=== PATIENT | female | born 1935 | race Two or more races ===

== ENCOUNTER 2020-03-06 11:10 | Inpatient (IN) | payer OTHER ==
[~2020-03-06] VITALS: Ht 162.6 cm; Wt 97.5 kg
[2020-03-06] VITALS (12 sets, daily range): BP systolic 100–158; BP diastolic 60–78
[2020-03-06 11:45] LABS: ABG BASE EXCESS 2.5 mmol/L; ABG OXYGEN SATURATION 95.9 % (92.0-98.5); ABG PCO2 66.9 mmHg (35.0-45.0); ABG PH 7.279 (7.350-7.450); ABG PO2 90.5 mmHg (75.0-100.0); AaDO2 409.7 mmHg; COHb 0.4 % (0.5-1.5); MetHb 0.1 % (0.0-1.5); O2Hb 95.4 % (94.0-97.0); SITE, ABG Right Radial; VENT MODE, BG NRB
--- NOTE | 2020-03-06 11:50 | NUR ---
BIB FAMILY FOR SOB X2 DAYS. COVID + A MONTH AGO. PATIENT A/OX4, BREATHING RAPID AND LABORED. SHORT OF BREATH. GRANDDAUGHTER AT BEDSIDE FOR TRANSLATION. ATTACHED TO THE MICROBIOLOGY DIRECTOR. SPO2 OF 39% ON ROOM AIR. DR. MELVIN AND RT AT BEDSIDE FOR EVALUATION.
[2020-03-06 12:06] LABS: BASOPHILS # (AUTO) 0.1 /CMM (0.0-0.2); BASOPHILS % (AUTO) 0.7 % (0.0-2.0); EOSINOPHILS % (AUTO) 2.4 % (0.0-6.0); HEMATOCRIT 35 % (33-45); HEMOGLOBIN 10.8 g/dL (11.5-14.8); LYMPHOCYTES # (AUTO) 1.6 /CMM (0.8-4.8); LYMPHOCYTES % (AUTO) 20.8 % (20.0-44.0); MEAN CORPUSCULAR HGB CONC 31 g/dl (31.0-36.0); MEAN CORPUSCULAR VOLUME 84 fL (82-100); MONOCYTES # (AUTO) 0.4 /CMM (0.1-1.30); MONOCYTES % (AUTO) 4.6 % (2.0-12.0); NEUTROPHILS # (AUTO) 5.6 /CMM (1.8-8.9); NEUTROPHILS % (AUTO) 71.5 % (43.0-81.0); PLATELET COUNT (AUTO) 282 /CMM (150-450); RED BLOOD CELL COUNT(AUTO) 4.17 MIL/uL (4.0-5.2); WHITE BLOOD COUNT (AUTO) 7.8 K/uL (4.3-11.0)
--- NOTE | 2020-03-06 12:14 | NUR ---
PATIENT ON BIPAP, TOLERATING CURRENT SETTINGS.
[2020-03-06] MEDS ORDERED: GLIM2TAB31 PO (12:19)
[2020-03-06] MEDS ORDERED: PANT40TA49 PO (12:19)
[2020-03-06] MEDS ORDERED: CALC-16 PO (12:19)
[2020-03-06] MEDS ORDERED: LOSA100T31 PO (12:19)
[2020-03-06] MEDS ORDERED: POTA10TA PO (12:19)
[2020-03-06] MEDS ORDERED: FURO40TA5 PO (12:19)
[2020-03-06] MEDS ORDERED: CLON0.1T PO (12:19)
[2020-03-06] MEDS ORDERED: GABA-532 PO (12:19)
[2020-03-06] MEDS ORDERED: LEVO75TA7 PO (12:19)
[2020-03-06] MEDS ORDERED: ALOG12.52 PO (12:19)
[2020-03-06] MEDS ORDERED: SIMV-46 PO (12:19)
[2020-03-06] MEDS ORDERED: APIX5TAB PO (12:19)
[2020-03-06] MEDS ORDERED: DILT300C57 PO (12:19)
[2020-03-06 12:21] LABS: CALCIUM, SERUM 8.3 mg/dL (8.5-10.1); CARBON DIOXIDE 30 mmol/L (21-32); CHLORIDE 106 mmol/L (98-107); CREATININE 1.2 mg/dL (0.6-1.3); GLUCOSE 223 mg/dL (74-106); POTASSIUM 4.1 mmol/L (3.5-5.1); SODIUM SERUM 144 mmol/L (136-145); UREA NITROGEN, BLOOD 20 mg/dL (7-18)
[2020-03-06 12:36] LABS: B-TYPE NATRIURETIC PEPTIDE 4672 PG/ML (0-125)
[2020-03-06] MEDS ORDERED: CEFEPIME 1 GM in IV D5W 50 ML IV ONE (13:00)
[2020-03-06] MEDS ORDERED: VANCOMYCIN 1 GM in IV D5W 250 ML IV ONE (13:00)
--- NOTE | 2020-03-06 14:58 | NUR ---
ATTEMPTED TO WEAN OFF PATIENT FROM BIPAP BY RT, PATIENT UNABLE TO TOLERATE. PATIENT PLACED BACK ON BIPAP AND DR. MAN MADE AWARE.
--- NOTE | 2020-03-06 15:20 | NUR ---
room 256
[2020-03-06] MEDS ORDERED: ZOLPIDEM TARTRATE 5 MG TABLET PO PRN (15:30)
[2020-03-06] MEDS ORDERED: Z GUARD REMEDY 2 OZ OINT TP PRN (15:30)
[2020-03-06] MEDS ORDERED: HYDROCODONE/APAP 5/325MG TABLET PO PRN (15:30)
[2020-03-06] MEDS ORDERED: MAG HYDROX/AL HYDROX/SIMETH 30 ML UDC PO PRN (15:30)
[2020-03-06] MEDS ORDERED: MAGNESIUM HYDROXIDE 30 ML UDC PO PRN (15:30)
[2020-03-06] MEDS ORDERED: ONDANSETRON HCL/PF 4 MG/2 ML VIAL IVP PRN (15:30)
[2020-03-06] MEDS ORDERED: ACETAMINOPHEN 325 MG TABLET PO PRN (15:30)
[2020-03-06] MEDS ORDERED: DEXTROSE 50%-WATER 50 ML DISP.SYRIN IV PRN ×2 (15:30→18:30)
--- NOTE | 2020-03-06 16:09 | NUR ---
report given to Max ORELLANA
[2020-03-06 17:04] LABS: BILIRUBIN,DIRECT 0.1 mg/dL (0.0-0.2); BILIRUBIN,TOTAL 0.5 mg/dL (0.2-1.0)
[2020-03-06] MEDS ORDERED: BLOOD SUGAR DIAGNOSTIC 1 EACH STRIP IN SCH (17:30)
--- NOTE | 2020-03-06 17:30 | NUR ---
BOILERMAKER FITTER NOTES RECEIVED PATIENT AOX4 GREENLANDIC SPEAKING , ON 5LPM NC SPO2 OF 92-95% , DENIES SOB AT THIS TIME , RESPIRATIONS UNLABORED , AFIB 88 ON BEDSIDE MONITOR , SKIN IS INTACT UPON ASSESSMENT , IV OF L HAND AND R HAND # 20 PATENT AND INTACT SL , ADMISSION ORDERS CARRIED OUT , BELONGING LIST CHECKED , BED ALARM MADE AUDIBLE , ATTACHED TO MONITOR , ISOLATION PREC OBSERVED , WILL CONTINUE TO MONITOR .
--- NOTE | 2020-03-06 17:31 | NUR ---
patient a/ox4, breathing appears to be more stable. Transferred to room 256-1 via acls protocol. No dsitress noted, patient able to ambulate. Endorsed to Max FELDER.
--- NOTE | 2020-03-06 17:50 | NUR ---
XEROX MACHINE MECHANIC NOTES CALLED PHARMACY , FOLLOWED UP ZITHROMAX 500MG IV , AMARYL 2MG , ELIQUIS NOT LOADED IN PHYXIS , PER PHARMACY THEY WILL DELIVER IT .
--- NOTE | 2020-03-06 18:30 | NUR ---
AUTO SUSPENSION AND STEERING MECHANIC NOTES CALLED PHARMACY F/U ZITHROMAX IV , AMARY; 2MG , ELQUIS STILL NOT LOADED IN PHYSIS , PER PHARMACIST THEY WILL BRING IT
[2020-03-06] MEDS: CALCIUM CARB 250MG /VITAMIN D 1 UDTAB PO SCH (18:46)
--- NOTE | 2020-03-06 19:13 | NUR ---
ORACLE MANAGER NOTES BS 155 @ 1735 , SSI NOT GIVEN THERE IS NO ORDER FOR COVERAGE , CALLED DIETARY , NO ANSWER TO F/U PT DIET .
--- NOTE | 2020-03-06 19:14 | NUR ---
INTERIOR SPECIALIST NOTES PATIENT STABLE AT THIS TIME , AOX4 KAZAKH SPEAKING , ON 5LPM NC SPO2 OF 97% , DENIES SOB AT THIS TIME , RESPIRATIONS UNLABORED , AFIB 78 ON BEDSIDE MONITOR , IV OF L HAND AND R HAND # 20 PATENT AND INTACT SL ,REPORT GIVEN TO TRISTON FOR CONTINUITY OF CARE CALLED PHARMACY SPOKE WITH LOUIE F/U MEDMayra , DRIVEMATIC MACHINE OPERATOR WILL BRING
[2020-03-06] MEDS ORDERED: SIMVASTATIN 20 MG TABLET PO SCH (22:00)
[2020-03-06] MEDS: CLONIDINE HCL 0.1 MG TABLET PO SCH (22:00)
[2020-03-06] MEDS: BLOOD SUGAR DIAGNOSTIC 1 EACH STRIP IN SCH (22:33)
[2020-03-06] MEDS: SIMVASTATIN 20 MG TABLET PO SCH (22:36)
[2020-03-06] MEDS: APIXABAN 5 MG TABLET PO SCH (22:38)
[2020-03-06] MEDS: GLIMEPIRIDE 1 MG TABLET PO SCH (22:43)
[2020-03-06] MEDS ORDERED: AZITHROMYCIN 500 MG VIAL ONE (23:13)
[2020-03-06] MEDS: AZITHROMYCIN 500 MG in IV D5W 250 ML IV SCH (23:23)
[2020-03-07] VITALS (27 sets, daily range): BP systolic 87–138; BP diastolic 52–98
--- NOTE | 2020-03-07 00:01 | NUR ---
pt placed on bipap due to increased o2 needs Addendum: 03/07/20 at 0434 by RADHA TINAJERO RT Amended: Links added.
--- NOTE | 2020-03-07 01:30 | NUR ---
CORRESPONDENCE REPRESENTATIVE PT NOTED TO DESATURATED; PLACED ON BIPAP BY RT. Addendum: 03/08/20 at 0625 by HOA ROBERTS RN 03/08/20
--- NOTE | 2020-03-07 04:15 | NUR ---
fio2 increased due to decreased spo2 Addendum: 03/07/20 at 0439 by RADHA DAVIS Amended: Links added.
[2020-03-07 05:13] LABS: EOSINOPHILS % (AUTO) 5.9 % (0.0-6.0); HEMATOCRIT 30 % (33-45); HEMOGLOBIN 9.5 g/dL (11.5-14.8); LYMPHOCYTES # (AUTO) 1.3 /CMM (0.8-4.8); LYMPHOCYTES % (AUTO) 29.8 % (20.0-44.0); MEAN CORPUSCULAR HGB CONC 31 g/dl (31.0-36.0); MEAN CORPUSCULAR VOLUME 83 fL (82-100); MONOCYTES # (AUTO) 0.3 /CMM (0.1-1.30); MONOCYTES % (AUTO) 7.4 % (2.0-12.0); NEUTROPHILS # (AUTO) 2.4 /CMM (1.8-8.9); NEUTROPHILS % (AUTO) 55.9 % (43.0-81.0); PLATELET COUNT (AUTO) 288 /CMM (150-450); RED BLOOD CELL COUNT(AUTO) 3.68 MIL/uL (4.0-5.2); WHITE BLOOD COUNT (AUTO) 4.2 K/uL (4.3-11.0)
[2020-03-07 05:31] LABS: CALCIUM, SERUM 8.2 mg/dL (8.5-10.1); MAGNESIUM 2.2 mg/dL (1.8-2.4); PHOSPHORUS 2.9 mg/dL (2.5-4.9); POTASSIUM 3.5 mmol/L (3.5-5.1)
[2020-03-07] MEDS: BLOOD SUGAR DIAGNOSTIC 1 EACH STRIP IN SCH ×4 (07:51→22:50)
[2020-03-07] MEDS: PANTOPRAZOLE 40 MG TABLET.DR PO SCH (07:52)
[2020-03-07] MEDS: LEVOTHYROXINE SODIUM 75 MCG TABLET PO SCH (07:52)
--- NOTE | 2020-03-07 08:00 | NUR ---
ICU/RN INITIAL NOTES,AM RECEIVED REPORT FROM NIGHT NURSE. PT ALERT, AWAKE, FOLLOWS COMMANDS. PT TAIWANESE SPEAKING ONLY. TAKEN OFF BIPAP, PLACED ON 6LITERS HUMIDIFIED NASAL CANULA, NO ACUTE DISTRESS NOTED AT THIS TIME. PT ON TELE, A.FIB. PER MD ORDERS RECEIVED FOR EDEN INSERTION FOR STRICT INTAKE AND OUTPUT. WILL FOLLOW THROUGH. ALL NEEDS WILL BE ATTENDED TO, SAFETY MEASURES TAKEN, BED IN LOW POSITION, SIDE RAILS UP, CALL LIGHT WITHIN REACH. WILL CONTINUE CARE.
[2020-03-07] MEDS: GLIMEPIRIDE 1 MG TABLET PO SCH ×2 (08:05→16:17)
[2020-03-07] MEDS: CALCIUM CARB 250MG /VITAMIN D 1 UDTAB PO SCH ×2 (08:06→16:17)
[2020-03-07] MEDS: GABAPENTIN 100 MG CAPSULE PO SCH (08:06)
[2020-03-07] MEDS: APIXABAN 5 MG TABLET PO SCH ×2 (08:06→16:20)
[2020-03-07] MEDS: LINAGLIPTIN 5 MG TABLET PO SCH (08:07)
[2020-03-07] MEDS: FUROSEMIDE 100 MG/10 ML VIAL IV SCH ×3 (08:24→18:01)
[2020-03-07] MEDS: POTASSIUM CHLORIDE 20 MEQ TAB.PRT.SR PO SCH ×3 (08:25→12:22)
[2020-03-07] MEDS ORDERED: DILTIAZEM HCL CD 300 MG PO SCH (09:00)
[2020-03-07] MEDS ORDERED: POTASSIUM CHLORIDE 10 MEQ TABLET.SA PO SCH (09:00)
[2020-03-07] MEDS ORDERED: LOSARTAN POTASSIUM 50 MG TABLET PO SCH (09:00)
[2020-03-07] MEDS ORDERED: FUROSEMIDE 40 MG/4 ML VIAL IV SCH (09:00)
[2020-03-07] MEDS ORDERED: ALOGLIPTIN BENZOATE 12.5 MG PO SCH (09:00)
[2020-03-07 09:03] LABS: ABG BASE EXCESS 7.4 mmol/L; ABG OXYGEN SATURATION 94.8 % (92.0-98.5); ABG PCO2 50.8 mmHg (35.0-45.0); ABG PH 7.429 (7.350-7.450); ABG PO2 71.1 mmHg (75.0-100.0); AaDO2 184.7 mmHg; COHb 0.2 % (0.5-1.5); MetHb 0.3 % (0.0-1.5); O2Hb 94.3 % (94.0-97.0); SITE, ABG Right Radial
[2020-03-07 12:23] LABS: IRON, SERUM 42 ug/dl (50-175); TOTAL IRON BINDING CAPACITY 301 ug/dl (250-450)
[2020-03-07 12:24] LABS: FERRITIN 209 ng/mL (8-388); THYROID STIMULATING HORMONE 3.033 uIU/mL (0.358-3.74)
--- NOTE | 2020-03-07 14:00 | NUR ---
ICU/RN: UPDATES GIVEN TO FAMILY, PT RESTING COMFORTABLY IN BED, ON NASAL CANULA, 6LITERS, NO ACUTE DISTRESS NOTED. WILL CONTINUE CARE. PT RECEIVED IV LASIX, ADEQUATE OUTPUT NOTED.
[2020-03-07] MEDS: CEFTRIAXONE 1 G in IV D5W 50 ML IV SCH (14:35)
[2020-03-07] MEDS: AZITHROMYCIN 500 MG in IV D5W 250 ML IV SCH (16:17)
[2020-03-07] MEDS ORDERED: CEFTRIAXONE 1 G in IV D5W 50 ML IV SCH (18:00)
--- NOTE | 2020-03-07 19:04 | NUR ---
ICU/RN ENDING NOTES,AM REPORT WILL BE ENDORSED TO NIGHT NURSE FOR CLAYTON. PT ALERT, AWAKE, FOLLOWS COMMANDS. ON 6LITERS HUMIDIFIED OS VIA NASAL CANULA. EDEN CATH INSERTED, DRAINING YELLOW URINE. PT RECEIVED 3 DOSES OF LASIX. A.FIB ON TELE. ALL NEEDS ATTENDED TO, SAFETY MEASURES TAKEN, BED IN LOW POSITION, SIDE RAILS UP, CALL LIGHT WITHIN REACH. WILL CONTINUE CARE.
[2020-03-07] MEDS: CLONIDINE HCL 0.1 MG TABLET PO SCH (22:50)
[2020-03-07] MEDS: SIMVASTATIN 20 MG TABLET PO SCH (22:50)
--- NOTE | 2020-03-07 23:00 | NUR ---
WOODWORKER HELPER PT CONTINUOUSLY PULLING OUT ECG LEADS AND IV LINES. PT NON COMPLIANT WITH CARE. YELLING AT STAFF. WELDING MACHINE OPERATOR THERMIT AT BEDSIDE REORIENTING PT NOT EFFECTIVE. BSWR PLACED ON PT. CONTINUE TO MONITOR.
[2020-03-08] VITALS (31 sets, daily range): BP systolic 85–132; BP diastolic 44–76
[2020-03-08 04:34] LABS: BASOPHILS % (AUTO) 1.1 % (0.0-2.0); EOSINOPHILS % (AUTO) 6.3 % (0.0-6.0); HEMATOCRIT 34 % (33-45); HEMOGLOBIN 10.7 g/dL (11.5-14.8); LYMPHOCYTES # (AUTO) 1.4 /CMM (0.8-4.8); LYMPHOCYTES % (AUTO) 30.3 % (20.0-44.0); MEAN CORPUSCULAR HGB CONC 31 g/dl (31.0-36.0); MEAN CORPUSCULAR VOLUME 82 fL (82-100); MONOCYTES # (AUTO) 0.4 /CMM (0.1-1.30); MONOCYTES % (AUTO) 8.9 % (2.0-12.0); NEUTROPHILS # (AUTO) 2.4 /CMM (1.8-8.9); NEUTROPHILS % (AUTO) 53.4 % (43.0-81.0); PLATELET COUNT (AUTO) 286 /CMM (150-450); RED BLOOD CELL COUNT(AUTO) 4.18 MIL/uL (4.0-5.2); WHITE BLOOD COUNT (AUTO) 4.5 K/uL (4.3-11.0)
[2020-03-08 04:53] LABS: ALANINE AMINOTRANSFERASE 25 U/L (12-78); ALKALINE PHOSPHATASE 81 U/L (46-116); ASPARTATE AMINOTRANSFERASE 21 U/L (15-37); BILIRUBIN,TOTAL 0.2 mg/dL (0.2-1.0); CALCIUM, SERUM 8.3 mg/dL (8.5-10.1); CHLORIDE 104 mmol/L (98-107); CREATININE 1.2 mg/dL (0.6-1.3); GLUCOSE 72 mg/dL (74-106); PHOSPHORUS 2.6 mg/dL (2.5-4.9); SODIUM SERUM 145 mmol/L (136-145); TOTAL PROTEIN, SERUM 6.2 g/dL (6.4-8.2); UREA NITROGEN, BLOOD 13 mg/dL (7-18)
[2020-03-08 05:02] LABS: CARBON DIOXIDE 40 mmol/L (21-32)
--- NOTE | 2020-03-08 06:25 | NUR ---
CASHIER SELF SERVICE GASOLINE PT TAKEN OFF BIPAP ON O2 5L NC.
[2020-03-08] MEDS: GABAPENTIN 100 MG CAPSULE PO SCH (08:22)
[2020-03-08] MEDS: LEVOTHYROXINE SODIUM 75 MCG TABLET PO SCH (08:22)
[2020-03-08] MEDS: LINAGLIPTIN 5 MG TABLET PO SCH (08:22)
[2020-03-08] MEDS: PANTOPRAZOLE 40 MG TABLET.DR PO SCH (08:22)
[2020-03-08] MEDS: CALCIUM CARB 250MG /VITAMIN D 1 UDTAB PO SCH ×2 (08:22→16:14)
[2020-03-08] MEDS: APIXABAN 5 MG TABLET PO SCH ×2 (08:23→16:15)
[2020-03-08] MEDS: GLIMEPIRIDE 1 MG TABLET PO SCH ×2 (08:29→16:16)
[2020-03-08] MEDS: BLOOD SUGAR DIAGNOSTIC 1 EACH STRIP IN SCH ×4 (08:41→21:06)
[2020-03-08] MEDS: DILTIAZEM HCL CD 240 MG PO SCH (08:41)
[2020-03-08] MEDS ORDERED: DILTIAZEM HCL CD 300 MG PO SCH (09:00)
--- NOTE | 2020-03-08 10:00 | NUR ---
RN NOTES PT OUT OF BED TO BSC WITH ASSIST , LARGE BM NOTED .
[2020-03-08 10:38] LABS: ABG BASE EXCESS 13.4 mmol/L; ABG OXYGEN SATURATION 95.9 % (92.0-98.5); ABG PCO2 59.6 mmHg (35.0-45.0); ABG PH 7.443 (7.350-7.450); ABG PO2 77.3 mmHg (75.0-100.0); AaDO2 168.5 mmHg; COHb 0.4 % (0.5-1.5); O2Hb 95.5 % (94.0-97.0); SITE, ABG Right Radial; VENT MODE, BG Nasal Cannula
[2020-03-08] MEDS: INSULIN REGULAR, HUMAN 100 UNIT/ML 3 ML VIAL SQ PRN ×3 (11:50→21:17)
--- NOTE | 2020-03-08 12:35 | NUR ---
RN NOTES DR LIGHT NOTIFED REGARDING SBP IN 80'S , PT IS ASYMPTOMATIC, CONTINUE TO MONITOR.
[2020-03-08] MEDS: CEFTRIAXONE 1 G in IV D5W 50 ML IV SCH (15:08)
[2020-03-08] MEDS: AZITHROMYCIN 500 MG in IV D5W 250 ML IV SCH (16:14)
--- NOTE | 2020-03-08 18:42 | NUR ---
RN NOTES NO DISTRESS NOTED, PT ON 5L O2 N/C , A/OX3-4, NO SIGNIFICANT CHANGES NOTED ON THIS SHIFT, WILL ENDORSE TO PROPOSAL ENGINEER NURSE FOR CONTINUITY OF CARE.
[2020-03-08] MEDS: SIMVASTATIN 20 MG TABLET PO SCH (21:06)
[2020-03-08] MEDS: CLONIDINE HCL 0.1 MG TABLET PO SCH (21:07)
--- NOTE | 2020-03-08 21:46 | NUR ---
emergency medical tech notes Received Pt from ICU Nurse EMERITA Freeman.
--- NOTE | 2020-03-08 21:50 | NUR ---
passenger service agent notes Received Pt from ICU nurse EMERITA Freeman. Pt is alert and oriented X3. Respiration on 5 L NC. No SOB. No S/S of distress noted. IV site at L hand# 20 is clean, intact and flushes well. VS is stable. Afebrile. Cpap machine at the bedside. Safety precautions is maintained. Bed at low position, brakes locked, side rails upX3 and call light is within reach. Will continue to monitor.
[2020-03-09] VITALS: BP 132/70
--- NOTE | 2020-03-09 | NUR ---
defensive secondary coach notes Pt refused to have C-pap machine. Explained risks and benefits. Pt said "No"! Pt keep refusing. Pt is on 5 L NC O2 sat is 96%.
[2020-03-09 04:00] VITALS: BP 128/78
[2020-03-09] MEDS: INSULIN REGULAR, HUMAN 100 UNIT/ML 3 ML VIAL SQ PRN ×4 (07:23→22:18)
[2020-03-09] MEDS: BLOOD SUGAR DIAGNOSTIC 1 EACH STRIP IN SCH ×4 (07:23→22:16)
--- NOTE | 2020-03-09 07:31 | NUR ---
COLLEGE TUTOR OPENING NOTES RECEIVED PT AWAKE IN BED IN NO ACUTE SIGNS OF DISTRESS. HOB ELEVATED. A/O X4. ABLE TO MAKE NEEDS KNOWN, DENIES PAIN OR ANY DISCOMFORTS AT THIS TIME. ON SUPPLEMENTAL 02 VIA N/C AT 5LPM, TOLERATING WELL, BREATHING ARE EVEN AND UNLABORED. TELE-MONITOR SHOWS CURRENT READING OF A-FIB CONTROLLED WITH HR ON THE 90'S, NO C/O CARDIAC DISTRESS VOICED AT THIS TIME. IV ACCESS ON LEFT HAND G#20 INTACT, PATENT AND FLUSHES WELL. EDEN IN PLACE AND NOTED WITH CLEAR YELLOW URINE OUTPUT AT BEDSIDE DRAINAGE BAG. SAFETY MEASURES IN PLACE: BED IN LOWEST LOCKED POSITION WITH SR UP X2. CALL LIGHT W/IN EASY REACH. WILL CONTINUE TO MONITOR PT ACCORDINGLY.
[2020-03-09] MEDS: PANTOPRAZOLE 40 MG TABLET.DR PO SCH (07:57)
[2020-03-09] MEDS: LEVOTHYROXINE SODIUM 75 MCG TABLET PO SCH (07:57)
[2020-03-09 08:00] VITALS: BP 135/76
[2020-03-09 08:07] LABS: BASOPHILS % (AUTO) 0.7 % (0.0-2.0); EOSINOPHILS % (AUTO) 6.7 % (0.0-6.0); HEMATOCRIT 36 % (33-45); HEMOGLOBIN 11.5 g/dL (11.5-14.8); LYMPHOCYTES # (AUTO) 1.6 /CMM (0.8-4.8); LYMPHOCYTES % (AUTO) 30.9 % (20.0-44.0); MEAN CORPUSCULAR HGB CONC 32 g/dl (31.0-36.0); MEAN CORPUSCULAR VOLUME 83 fL (82-100); MONOCYTES # (AUTO) 0.4 /CMM (0.1-1.30); MONOCYTES % (AUTO) 8.7 % (2.0-12.0); NEUTROPHILS # (AUTO) 2.7 /CMM (1.8-8.9); PLATELET COUNT (AUTO) 341 /CMM (150-450); RED BLOOD CELL COUNT(AUTO) 4.38 MIL/uL (4.0-5.2); WHITE BLOOD COUNT (AUTO) 5.1 K/uL (4.3-11.0)
[2020-03-09 08:30] LABS: CREATININE 1.2 mg/dL (0.6-1.3); POTASSIUM 4.2 mmol/L (3.5-5.1)
--- NOTE | 2020-03-09 08:43 | NUR ---
quality lab assoc closing notes Patient in bed resting comfortably. Patient breathing even and unlabored with no signs of SOB or acute respiratory distress. Safety measure is maintained, bed is in the lowest level, bed is locked, alarm is on, side rails x2 are up, and call light is within reach. Endorsed continuity of care to morning nurse.
[2020-03-09] MEDS: GLIMEPIRIDE 1 MG TABLET PO SCH ×2 (10:03→16:55)
[2020-03-09] MEDS: LINAGLIPTIN 5 MG TABLET PO SCH (10:03)
[2020-03-09] MEDS: GABAPENTIN 100 MG CAPSULE PO SCH (10:03)
[2020-03-09] MEDS: APIXABAN 5 MG TABLET PO SCH ×2 (10:04→16:56)
[2020-03-09] MEDS: DILTIAZEM HCL CD 240 MG PO SCH (10:05)
[2020-03-09] MEDS: CALCIUM CARB 250MG /VITAMIN D 1 UDTAB PO SCH ×2 (10:05→16:56)
[2020-03-09 12:00] VITALS: BP 126/68
[2020-03-09] MEDS: CEFTRIAXONE 1 G in IV D5W 50 ML IV SCH (15:30)
[2020-03-09 16:00] VITALS: BP 118/59
[2020-03-09] MEDS: AZITHROMYCIN 500 MG in IV D5W 250 ML IV SCH (16:55)
--- NOTE | 2020-03-09 18:59 | NUR ---
PRODUCTION ROUSTABOUT OPENING NOTES RECEIVED AWAKE IN BED IN NO ACUTE SIGNS OF DISTRESS. HOB ELEVATED. A/O X4. ABLE TO MAKE NEEDS KNOWN ON SUPPLEMENTAL 02 VIA N/C AT 2LPM, TOLERATING WELL, BREATHING ARE EVEN AND UNLABORED. TELE-MONITOR SHOWS CURRENT READING OF A-FIB CONTROLLED WITH HR ON THE 90'S, NO C/O CARDIAC DISTRESS VOICED AT THIS TIME. IV ACCESS ON LEFT HAND G#20 INTACT INFILTRATED. LEFT HAND SWOLLEN AND ELEVATED. IV ACESS ON RIGHT HAND G#22 INTACT AND PATENT. EDEN IN PLACE AND NOTED WITH CLEAR YELLOW URINE OUTPUT AT BEDSIDE DRAINAGE BAG. SAFETY MEASURES IN PLACE: BED IN LOWEST LOCKED POSITION WITH SR UP X2. CALL LIGHT W/IN EASY REACH. WILL ENDORSE PLAN OF CARE.
--- NOTE | 2020-03-09 19:05 | NUR ---
FUNCTIONAL TESTER TYPEWRITERS OPENING NOTES RECEIVED PATIENT IN BED AWAKE ALERT AND ORIENTED X3, ON 5 L VIA NC TOLERATING WELL, PT REFUSED BIPAP WHEN OFFERED, RESPIRATIONS EVEN AND UNLABORED WITH EQUAL RISE AND FALL OF CHEST, DENIES ANY PAIN OR DISCOMFORT AT THIS TIME,EDEN CATHETER INTACT AND DRAINING URINE YELLOW, IV SITE TO RIGHT HAND #22 G INTACT AND PATENT, NO REDNESS, NO INFILTRATION PRESENT, ORIENTED TO STAFF AND CALL LIGHT AND KEPT WITHIN REACH, ALL NEEDS ATTENDED WILL CONTINUE TO MONITOR, TOILETING OFFERED.
[2020-03-09 20:00] VITALS: BP_SYST 100; BP_SYST 121; BP_DIAS 68; BP_DIAS 73
[2020-03-09] MEDS: CLONIDINE HCL 0.1 MG TABLET PO SCH (22:00)
[2020-03-09] MEDS: SIMVASTATIN 20 MG TABLET PO SCH (22:16)
[2020-03-10] VITALS (7 sets, daily range): BP systolic 116–139; BP diastolic 55–86
[2020-03-10] MEDS: BLOOD SUGAR DIAGNOSTIC 1 EACH STRIP IN SCH ×4 (06:10→22:00)
[2020-03-10] MEDS: INSULIN REGULAR, HUMAN 100 UNIT/ML 3 ML VIAL SQ PRN ×3 (06:11→22:04)
--- NOTE | 2020-03-10 06:56 | NUR ---
ACCOUNTING CONSULTANT CLOSING NOTES PATIENT IN BED AWAKE ALERT AND ORIENTED X3, ON 5 L VIA NC TOLERATING WELL, PT REFUSED BIPAP WHEN OFFERED, RESPIRATIONS EVEN AND UNLABORED WITH EQUAL RISE AND FALL OF CHEST, DENIES ANY PAIN OR DISCOMFORT AT THIS TIME,EDEN CATHETER INTACT AND DRAINING URINE YELLOW, IV SITE TO RIGHT HAND #22 G INTACT AND PATENT, NO REDNESS, NO INFILTRATION PRESENT, ORIENTED TO STAFF AND CALL LIGHT AND KEPT WITHIN REACH, ALL NEEDS ATTENDED WILL CONTINUE TO MONITOR, TOILETING OFFERED. WILL ENDORSE TO NEXT SHIFT.
--- NOTE | 2020-03-10 07:57 | NUR ---
PRINCIPAL STRATEGIST OPENING NOTE PATIENT IS IN BED RESTING COMFORTABLY. PATIENT IS IN NO ACUTE DISTRESS. PATIENT IS ON NC ON 5L OXYGEN, PATIENT OXYGEN SATURATION IS 97%. PATIENTS BREATHING IS EVEN AND UNLABORED. PATIENT IS ON SODA FOUNTAIN MANAGER READING AFIB 76. PATIENT BED ALARM IS ON. SAFETY PRECAUTION IN PLACE. HOB ELEVATED. PATIENTS BED IS LOCKED IN THE LOWEST POSITION. CALL LIGHT WITHIN REACH. WILL CONTINUE TO MONITOR.
[2020-03-10 08:30] LABS: BASOPHILS % (AUTO) 0.9 % (0.0-2.0); EOSINOPHILS % (AUTO) 7.9 % (0.0-6.0); HEMATOCRIT 36 % (33-45); HEMOGLOBIN 11.2 g/dL (11.5-14.8); LYMPHOCYTES # (AUTO) 1.3 /CMM (0.8-4.8); LYMPHOCYTES % (AUTO) 29.7 % (20.0-44.0); MEAN CORPUSCULAR HGB CONC 31 g/dl (31.0-36.0); MEAN CORPUSCULAR VOLUME 83 fL (82-100); MONOCYTES # (AUTO) 0.4 /CMM (0.1-1.30); MONOCYTES % (AUTO) 8.9 % (2.0-12.0); NEUTROPHILS # (AUTO) 2.4 /CMM (1.8-8.9); NEUTROPHILS % (AUTO) 52.6 % (43.0-81.0); PLATELET COUNT (AUTO) 345 /CMM (150-450); RED BLOOD CELL COUNT(AUTO) 4.29 MIL/uL (4.0-5.2); WHITE BLOOD COUNT (AUTO) 4.5 K/uL (4.3-11.0)
[2020-03-10] MEDS: LEVOTHYROXINE SODIUM 75 MCG TABLET PO SCH (08:30)
[2020-03-10] MEDS: LINAGLIPTIN 5 MG TABLET PO SCH (08:30)
[2020-03-10] MEDS: PANTOPRAZOLE 40 MG TABLET.DR PO SCH (08:30)
[2020-03-10] MEDS: GABAPENTIN 100 MG CAPSULE PO SCH (08:30)
[2020-03-10] MEDS: DILTIAZEM HCL CD 240 MG PO SCH (08:32)
[2020-03-10] MEDS: GLIMEPIRIDE 1 MG TABLET PO SCH ×2 (08:33→16:37)
[2020-03-10] MEDS: CALCIUM CARB 250MG /VITAMIN D 1 UDTAB PO SCH ×2 (08:33→16:38)
[2020-03-10] MEDS: APIXABAN 5 MG TABLET PO SCH ×2 (08:34→16:40)
[2020-03-10] MEDS ORDERED: FUROSEMIDE 20 MG/2 ML VIAL IV ONE (09:30)
[2020-03-10 11:08] LABS: CREATININE 1.2 mg/dL (0.6-1.3); POTASSIUM 4.1 mmol/L (3.5-5.1)
[2020-03-10] MEDS: CEFTRIAXONE 1 G in IV D5W 50 ML IV SCH (15:53)
[2020-03-10] MEDS: AZITHROMYCIN 250 MG TABLET PO SCH (16:38)
--- NOTE | 2020-03-10 19:00 | NUR ---
RELISH MAKER OPENING NOTES RECEIVED PATIENT IN BED AWAKE ALERT AND ORIENTED X3, ON 5 L VIA NC TOLERATING WELL, , RESPIRATIONS EVEN AND UNLABORED WITH EQUAL RISE AND FALL OF CHEST, DENIES ANY PAIN OR DISCOMFORT AT THIS TIME,EDEN CATHETER INTACT AND DRAINING URINE YELLOW, IV SITE TO RIGHT HAND #22 G INTACT AND PATENT, NO REDNESS, NO INFILTRATION PRESENT, HL,ORIENTED TO STAFF AND CALL LIGHT AND KEPT WITHIN REACH, TOILETING NEEDS PROVIDED HAD X 1 BM BROWN IN COLOR NORMAL FORMED, ALL NEEDS ATTENDED WILL CONTINUE TO MONITOR,REMAINS COMFORTABLE.
--- NOTE | 2020-03-10 19:17 | NUR ---
RADIATOR TESTER CLOSING NOTE PATIENT IS IN BED RESTING COMFORTABLE. PATIENT IN NO ACUTE DISTRESS. PATIENT IS ON 5L OXYGEN ON NC. PATIENTS BREATHING IS EVEN AND UNLABORED. HOB ELEVATED. PATIENT IS ON JACQUARD LACE WEAVER AFIB 78. PATIENT KEPT CLEAN, DRY COMFORTABLE THROUGHOUT THE SHIFT. PATIENT NEEDS ADDRESSED. PATIENT BED ALARM IS ON. BED IS LOCKED AND IN THE LOWEST POSITION. CALL LIGHT WITHIN REACH. ENDORSE TO THE GUINEA PIG BREEDER NURSE FOR CLAYTON.
[2020-03-10] MEDS: SIMVASTATIN 20 MG TABLET PO SCH (22:04)
[2020-03-10] MEDS: CLONIDINE HCL 0.1 MG TABLET PO SCH (22:05)
[2020-03-11] VITALS: BP_SYST 103; BP_SYST 132; BP_DIAS 74
[2020-03-11 04:00] VITALS: BP 120/70
[2020-03-11] MEDS: BLOOD SUGAR DIAGNOSTIC 1 EACH STRIP IN SCH ×4 (06:14→22:39)
[2020-03-11] MEDS: INSULIN REGULAR, HUMAN 100 UNIT/ML 3 ML VIAL SQ PRN ×4 (06:14→22:49)
--- NOTE | 2020-03-11 06:50 | NUR ---
EXTRACTOR TENDER RAW STOCK CLOSING NOTES PATIENT IN BED AWAKE ALERT AND ORIENTED X3, ON 5 L VIA NC TOLERATING WELL, , RESPIRATIONS EVEN AND UNLABORED WITH EQUAL RISE AND FALL OF CHEST, DENIES ANY PAIN OR DISCOMFORT AT THIS TIME,EDEN CATHETER INTACT AND DRAINING URINE YELLOW, IV SITE TO RIGHT HAND #22 G INTACT AND PATENT, NO REDNESS, NO INFILTRATION PRESENT, HL,CALL LIGHT KEPT WITHIN REACH, TOILETING NEEDS PROVIDED HAD X 1 BM BROWN IN COLOR NORMAL FORMED, ALL NEEDS ATTENDED WILL CONTINUE TO MONITOR,REMAINS COMFORTABLE AND WILL ENDORSE TO NEXT SHIFT.
--- NOTE | 2020-03-11 07:30 | NUR ---
TELE/RN OPENING NOTE PATIENT IN BED. A/O X3. AFEBRILE. DENIES ANY PAIN. WITH NC @5L/ MIN. IV ON RIGHT HAND #22 SL. IN NO APPARENT DISTRESS. BREATHING EVEN AND UNLABORED. WITH EDEN CATH DRAINING WELL, YELLOW IN COLOR. BED REMAINS LOW AND LOCKED. CALL LIGHT WITHIN REACH. WILL CONTINUE TO MONITOR.
[2020-03-11 07:38] LABS: HEMATOCRIT 36 % (33-45); HEMOGLOBIN 11.2 g/dL (11.5-14.8); LYMPHOCYTES # (AUTO) 1.3 /CMM (0.8-4.8); LYMPHOCYTES % (AUTO) 33.6 % (20.0-44.0); MEAN CORPUSCULAR HGB CONC 31 g/dl (31.0-36.0); MEAN CORPUSCULAR VOLUME 83 fL (82-100); MONOCYTES # (AUTO) 0.4 /CMM (0.1-1.30); MONOCYTES % (AUTO) 9.5 % (2.0-12.0); NEUTROPHILS # (AUTO) 1.8 /CMM (1.8-8.9); NEUTROPHILS % (AUTO) 46.9 % (43.0-81.0); PLATELET COUNT (AUTO) 343 /CMM (150-450); RED BLOOD CELL COUNT(AUTO) 4.34 MIL/uL (4.0-5.2); WHITE BLOOD COUNT (AUTO) 3.9 K/uL (4.3-11.0)
[2020-03-11 08:00] VITALS: BP 143/76
[2020-03-11 08:43] LABS: ABG BASE EXCESS 9.3 mmol/L; ABG OXYGEN SATURATION 94.6 % (92.0-98.5); ABG PCO2 54.9 mmHg (35.0-45.0); ABG PH 7.426 (7.350-7.450); ABG PO2 68.6 mmHg (75.0-100.0); AaDO2 153.5 mmHg; COHb 0.6 % (0.5-1.5); MetHb 0.2 % (0.0-1.5); O2Hb 93.8 % (94.0-97.0); SITE, ABG Right Radial; VENT MODE, BG 40%
[2020-03-11 08:46] LABS: CALCIUM, SERUM 8.7 mg/dL (8.5-10.1); CREATININE 1.1 mg/dL (0.6-1.3); POTASSIUM 4.2 mmol/L (3.5-5.1)
[2020-03-11] MEDS: GLIMEPIRIDE 1 MG TABLET PO SCH ×2 (08:57→17:56)
[2020-03-11] MEDS: GABAPENTIN 100 MG CAPSULE PO SCH (08:57)
[2020-03-11] MEDS: CALCIUM CARB 250MG /VITAMIN D 1 UDTAB PO SCH ×2 (08:59→17:57)
[2020-03-11] MEDS: APIXABAN 5 MG TABLET PO SCH ×2 (08:59→18:01)
[2020-03-11] MEDS: LINAGLIPTIN 5 MG TABLET PO SCH (08:59)
[2020-03-11] MEDS: DILTIAZEM HCL CD 240 MG PO SCH (09:00)
[2020-03-11] MEDS: PANTOPRAZOLE 40 MG TABLET.DR PO SCH (09:01)
[2020-03-11] MEDS: LEVOTHYROXINE SODIUM 75 MCG TABLET PO SCH (09:01)
[2020-03-11] MEDS: CEFTRIAXONE 1 G in IV D5W 50 ML IV SCH (15:50)
[2020-03-11] MEDS: AZITHROMYCIN 250 MG TABLET PO SCH (17:58)
--- NOTE | 2020-03-11 18:29 | NUR ---
TELE/RN CLOSING NOTE PATIENT SITTING IN BED. A/O X3-4. AFEBRILE. DENIES ANY PAIN. IN NO APPARENT DISTRESS. ON NC @ 5L/MIN. WITH IV ON RIGHT HAND #22G SL. EDEN CATH DRAINING WELL. BED REMAINS LOW AND LOCKED. SIDE RAILS UP X2. CALL LIGHT WITHIN REACH. WILL ENDORSE TO HIGHWAY DESIGN ENGINEER FOR CONTINUITY OF CARE.
[2020-03-11 20:00] VITALS: BP 125/90
[2020-03-11] MEDS: SIMVASTATIN 20 MG TABLET PO SCH (22:40)
[2020-03-11] MEDS: CLONIDINE HCL 0.1 MG TABLET PO SCH (22:40)
[2020-03-12] VITALS: BP 126/68
[2020-03-12 04:00] VITALS: BP 133/90
[2020-03-12] MEDS: BLOOD SUGAR DIAGNOSTIC 1 EACH STRIP IN SCH ×3 (06:51→17:46)
[2020-03-12 07:10] LABS: HEMATOCRIT 35 % (33-45); HEMOGLOBIN 10.7 g/dL (11.5-14.8); LYMPHOCYTES # (AUTO) 1.4 /CMM (0.8-4.8); LYMPHOCYTES % (AUTO) 33.2 % (20.0-44.0); MEAN CORPUSCULAR HGB CONC 31 g/dl (31.0-36.0); MEAN CORPUSCULAR VOLUME 84 fL (82-100); MONOCYTES # (AUTO) 0.4 /CMM (0.1-1.30); MONOCYTES % (AUTO) 9.7 % (2.0-12.0); NEUTROPHILS % (AUTO) 48.1 % (43.0-81.0); PLATELET COUNT (AUTO) 312 /CMM (150-450); RED BLOOD CELL COUNT(AUTO) 4.15 MIL/uL (4.0-5.2); WHITE BLOOD COUNT (AUTO) 4.2 K/uL (4.3-11.0)
[2020-03-12] MEDS: PANTOPRAZOLE 40 MG TABLET.DR PO SCH (07:37)
[2020-03-12] MEDS: LEVOTHYROXINE SODIUM 75 MCG TABLET PO SCH (07:37)
--- NOTE | 2020-03-12 07:49 | NUR ---
FORENSIC PSYCHIATRIST OPENING NOTE PATIENT IN BED SLEEPING,. A/O X3, ABLE TO MAKE NEEDS KNOWN. ON OXYGEN 3LPM NASAL CANULA , TOLERATING WELL, BREATHING EVEN AND UNLABORED. DENIES ANY PAIN OR DISCOMFORT. NO APPARENT DISTRESS NOTED. IV ON RIGHT HAND #22 SL, INTACT AND PATENT. WITH EDEN CATH DRAINING WELL, YELLOW IN COLOR. BED REMAINS LOW AND LOCKED, SIDE RAILS UPX2. CALL LIGHT WITHIN REACH. WILL CONTINUE TO MONITOR.
[2020-03-12 07:59] LABS: CALCIUM, SERUM 8.7 mg/dL (8.5-10.1); POTASSIUM 4.6 mmol/L (3.5-5.1)
[2020-03-12 08:00] VITALS: BP 124/64
[2020-03-12] MEDS ORDERED: FUROSEMIDE 20 MG/2 ML VIAL IV ONE (09:00)
[2020-03-12] MEDS: LINAGLIPTIN 5 MG TABLET PO SCH (09:21)
[2020-03-12] MEDS: GLIMEPIRIDE 1 MG TABLET PO SCH ×2 (09:21→16:56)
[2020-03-12] MEDS: DILTIAZEM HCL CD 240 MG PO SCH (09:22)
[2020-03-12] MEDS: APIXABAN 5 MG TABLET PO SCH ×2 (09:23→16:55)
[2020-03-12] MEDS: GABAPENTIN 100 MG CAPSULE PO SCH (09:24)
[2020-03-12] MEDS: CALCIUM CARB 250MG /VITAMIN D 1 UDTAB PO SCH ×2 (09:24→16:55)
[2020-03-12] MEDS ORDERED: AZIT1PAC9 PO (13:14)
[2020-03-12] MEDS: CEFTRIAXONE 1 G in IV D5W 50 ML IV SCH (14:51)
--- NOTE | 2020-03-12 15:21 | NUR ---
RN NOTES PATIENT TRIED TO PLACE ON ROOM AIR, BUT PT NOTED WITH SOB ON EXERTION AND SP02 DROPPED TO 88%. 02 VIA N/C AT 5LPM WAS PLACED BACK AND SP02 WENT UP SUDDENLY TO 97-98%. WILL CONTINUE TO MONITOR.
[2020-03-12 16:00] VITALS: BP 136/62
[2020-03-12] MEDS: AZITHROMYCIN 250 MG TABLET PO SCH (16:55)
[2020-03-12] MEDS: INSULIN REGULAR, HUMAN 100 UNIT/ML 3 ML VIAL SQ PRN (17:46)
--- NOTE | 2020-03-12 18:36 | NUR ---
VISUAL EDUCATION DIRECTOR CLOSING NOTES PT IN BED AWAKE AND RESTING AT HIGH BACKREST POSITION. A/O X4. ABLE TO MAKE NEEDS KNOWN. ON SUPPLEMENTAL 02 VIA N/C AT 2LPM, TOLERATING WELL, BREATHING ARE EVEN AND UNLABORED. TELE-MONITOR SHOWS CURRENT READING OF A-FIB CONTROLLED WITH HR ON THE 70'S, NO C/O CARDIAC DISTRESS VOICED DURING THE DAY. IV ACCESS ON RIGHT HAND G#22 INTACT, PATENT AND FLUSHES WELL. EDEN REMOVED THIS MORNING AND PT'S VOIDING WELL WITHOUT PROBLEM. ALL NEEDS AND CARE ATTENDED WELL. SAFETY MEASURES KEPT IN PLACE: BED IN LOWEST LOCKED POSITION WITH SR UP X2. CALL LIGHT W/IN EASY REACH. PT FOR DISCHARGE HOME TONIGHT, AWAITING TRANSPORT FROM "[facility]" REF # [id number]. WILL ENDORSE ENDORSE TO VISITOR INFORMATION ASSISTANT NURSE.
--- NOTE | 2020-03-12 19:10 | NUR ---
RN DISCHARGED NOTES PATIENT DISCHARGED HOME IN STABLE CONDITION. A/O X3. ABLE TO MAKE NEEDS KNOWN. ALL NEEDS NAD CARE ATTENDED WELL. V/S TAKEN, STABLE AND RECORDED. SKIN IS INTACT. ALL BELONGINGS ACCOUNTED FOR AND SIGNED FORM. NAME ARMBAND REMOVED. IV ACCESS ON RIGHT HAND REMOVED WITH NO ACTIVE BLEEDING NOTED AT SITE. PT UNABLE TO UNDERSTAND LITHUANIAN, DISCHARGE INSTRUCTIONS GIVEN TO DAUGHTER VIA TELEPHONE AND TRANSLATED TO PT, BOTH VERBALIZED UNDERSTANDING. PT LEFT UNIT VIA GURNEY AT 1910 WITH 02 @ 3LPM VIA N/C ACCOMPANIED BY 2 EMT'S "[facility]" SERVICE.
--- NOTE | 2020-03-12 19:13 | NUR ---
MICROARRAY OPERATIONS VICE PRESIDENT NOTES PATIENT PICKED UP BY 2 EMT AND TRANSFERRED HOME VIA GURNEY / AMBULANCE. BELONGINGS GIVEN TO EMT AND CALLED LARRY (DAUGHTER) THAT PATIENT IS BEING DISCHARGED. GAVE LARRY DISCHARGE AND MEDICATION INSTRUCTIONS.
[2020-03-13] MEDS ORDERED: FUROSEMIDE 40 MG TABLET PO SCH (09:00)
== END 2020-03-12 19:10 | disposition home or self-care (01) | DRG 133 ==
LOC: ER 11:14 → ICU 15:48 → TELE 03-08 21:41
PROVIDERS: ADMIT Family Medicine; ATTEND Nurse Practitioner Acute Care
PROC: 5A09357 Assistance with Respiratory Ventilation, Less than 24 Consecutive Hours, Continuous Positive Airway Pressure (ICD-10-PCS; principal; 2020-03-06)
DX: J96.02 Acute respiratory failure with hypercapnia (principal); I11.0 Hypertensive heart disease with heart failure; J15.9 Unspecified bacterial pneumonia; J96.01 Acute respiratory failure with hypoxia; I48.91 Unspecified atrial fibrillation; N17.0 Acute kidney failure with tubular necrosis; E87.2 Acidosis; E03.9 Hypothyroidism, unspecified; K21.9 Gastro-esophageal reflux disease without esophagitis; J98.11 Atelectasis; J84.9 Interstitial pulmonary disease, unspecified; Z79.01 Long term (current) use of anticoagulants; I27.20 Pulmonary hypertension, unspecified; Z79.84 Long term (current) use of oral hypoglycemic drugs; E66.9 Obesity, unspecified; Z68.36 Body mass index [BMI] 36.0-36.9, adult; E11.65 Type 2 diabetes mellitus with hyperglycemia; I50.33 Acute on chronic diastolic (congestive) heart failure; E66.2 Morbid (severe) obesity with alveolar hypoventilation; Z86.19 Personal history of other infectious and parasitic diseases; E78.5 Hyperlipidemia, unspecified
CPT/HCPCS: 36415; 36600; 71045-TC; 71250-TC; 80048-TC; 80053-TC; 80061-TC; 82247-TC; 82248-TC; 82728-TC; 82803-TC; 82962-TC; 83540-TC; 83605-TC; 83735-TC; 83880; 84100-TC; 84439-TC; 84443-TC; 84484-TC; 85025-TC; 87040-TC; 87081-TC; 93307-TC; 94660; 94799-TC; C9803; G0378; J0456; J0692; J0696; J1815; J1940; J3370; J7050; J7060